=== PATIENT | male | born 1990 | race Caucasian/White ===

== ENCOUNTER 2017-01-09 16:44 | Emergency (ER) | payer MEDICARE, MEDICAID ==
[~2017-01-09] VITALS: Ht 170.2 cm; Wt 95.5 kg
[2017-01-09 17:31] VITALS: BP 138/75
[2017-01-09 17:49] LABS: BLOOD UREA NITROGEN 18 mg/dL (7-18)
== END 2017-01-09 18:15 | disposition home or self-care (01) ==
LOC: ED 18:09
DX: K59.00 Constipation, unspecified (principal); I10 Essential (primary) hypertension; K21.9 Gastro-esophageal reflux disease without esophagitis; Z87.891 Personal history of nicotine dependence
CPT/HCPCS: 36415; 74020; 80048; 82040; 85025; 99285